=== PATIENT | male | born 2000 | race Two or more races ===

== ENCOUNTER 2025-03-08 08:59 | Day surgery (SDC) | payer BC ==
[2025-03-08 09:57] LABS: BASOPHILS ABSOLUTE AUTO 0.06 K/uL (0.00-0.20); BASOPHILS PERCENT AUTO 0.5 % (0.0-1.0); EOSINOPHILS ABSOLUTE AUTO 0.33 K/uL (0.00-0.45); EOSINOPHILS PERCENT AUTO 2.6 % (0.0-6.0); IMMATURE GRAN ABSOLUTE AUTO 0.04 K/uL (0.00-0.05); IMMATURE GRAN PERCENT AUTO 0.3 % (0.0-0.4); LYMPHOCYTES ABSOLUTE AUTO 1.33 K/uL (1.00-4.80); LYMPHOCYTES PERCENT AUTO 10.6 % (24.0-44.0); MEAN PLATELET VOLUME 9.0 fL (9.4-12.4); MONOCYTES ABSOLUTE AUTO 0.81 K/uL (0.00-0.80); MONOCYTES PERCENT AUTO 6.4 % (0.0-8.0); NEUTROPHILS ABSOLUTE AUTO 10.03 K/uL (1.80-7.70); NEUTROPHILS PERCENT AUTO 79.6 % (41.0-71.0); NRBC ABSOLUTE 0.00 K/uL (0.00-0.02); NRBC PERCENT 0.0 /100WBC (0.0-0.2); PLATELET COUNT,PLT 279 K/uL (150-400); RED BLOOD CELL COUNT 5.57 M/uL (4.52-5.90); WHITE BLOOD CELL COUNT,WBC 12.60 K/uL (3.9-11.3)
[2025-03-08] MEDS: Ondansetron 4 MG/2 ML SDV IVPUSH ONE (09:59)
[2025-03-08 10:22] LABS: A/G RATIO 1.3 (0.9-1.6); ALANINE AMINOTRANSFERASE,ALT 25.0 IU/L (14-63); ASPARTATE AMNIOTRANSFERASE,AST 23.0 IU/L (15-37); BILIRUBIN TOTAL 0.6 mg/dL (0.2-1.0); BLOOD UREA NITROGEN,BUN 20.0 mg/dL (7.0-18.0); CARBON DIOXIDE,CO2 26.1 mmol/L (21.0-32.0); CHLORIDE,CL 103.0 mmol/L (98-107); CREATININE 1.1 mg/dL (0.8-1.3); EST CRCL DRUG DOSING (CG) 100.18 mL/min; GLUCOSE RANDOM 97.0 mg/dL (74-106); POTASSIUM,K 4.3 mmol/L (3.5-5.1); PROTEIN TOTAL,TP 7.8 g/dL (6.4-8.2); SODIUM,NA 140.0 mmol/L (136-148)
[2025-03-08] MEDS: Iopamidol 755 MG/ML 500 ML Multipack Bottle IVPUSH STA (10:22)
[2025-03-08 10:24] LABS: ESTIMATED GFR 96.0 mL/min (>60)
[2025-03-08 12:19] LABS: APPEARANCE,URINE CLEAR; GLUCOSE,URINE NEGATIVE (NEGATIVE); OCCULT BLOOD,URINE NEGATIVE (NEGATIVE)
[2025-03-08] MEDS ORDERED: Scopalamine 1mg/3day Transdermal Patch ONE (13:35)
[2025-03-08] MEDS ORDERED: Ondansetron 4 MG/2 ML SDV ONE ×2 (13:37)
[2025-03-08] MEDS ORDERED: Ketorolac 30 MG/ML SDV ONE (13:37)
[2025-03-08] MEDS ORDERED: propofoL 500 MG/50 ML 50 ML ONE (13:38)
[2025-03-08] MEDS ORDERED: fentaNYL 50 MCG/ML SDV IVPUSH PRN (13:47)
[2025-03-08] MEDS ORDERED: Naloxone 0.4 MG/ML SDV IVPUSH PRN (13:47)
[2025-03-08] MEDS ORDERED: Ondansetron 4 MG/2 ML SDV IVPUSH PRN (13:47)
[2025-03-08] MEDS ORDERED: Albuterol 0.083% 2.5 MG/3 ML Neb Soln NEB PRN (13:47)
[2025-03-08] MEDS ORDERED: fentaNYL 100 MCG/2 ML SDV ONE (14:03)
[2025-03-08] MEDS ORDERED: Morphine 10 MG/ML SDV ONE (14:03)
[2025-03-08] MEDS ORDERED: propofoL 1,000 MG/100 ML 100 ML ONE (14:29)
[2025-03-08] MEDS ORDERED: Ropivacaine 0.5% 5 MG/ML 30 ML SDV ONE ×2 (14:29→14:31)
[2025-03-08] MEDS ORDERED: Acetaminophen/oxyCODONE 325-5 MG Tab PO PRN (17:48)
== END 2025-03-08 18:52 | disposition home or self-care (01) ==
LOC: MW.ED 08:59 → MW.SDS 13:20 → MW.MS 17:37 → MW.SDS 18:52
PROVIDERS: ATTEND Surgery
DX: K35.30 Acute appendicitis with localized peritonitis, without perforation or gangrene (principal); E66.9 Obesity, unspecified
CPT/HCPCS: 36415; 44970; 74177; 80053; 81001; 83605; 83690; 85025; 96361; 96365; 96375; 99285; A9270; J0665; J1885; J2003; J2272; J2405; J2543; J2704; J2795; J3010; J7030; Q9967; 00840; 64488; J2270; J3490